=== PATIENT | male | born 1995 | race Hispanic/Latino ===

== ENCOUNTER → 2022-07-09 | Day surgery (SDC) | payer OTHER, SELFPAY ==
[~2022-07-09] MED LIST: FENTANYL CITRATE/PF 100MCG/2 ML INJ ONE; LACTATED RINGER'S 1,000 ML ONE; LIDOCAINE HCL 2% LOCAL INJ 5 ML SDV VIAL INJ ONE; METOCLOPRAMIDE HCL 10 MG/2ML VIAL ONE; OMEPRAZOLE40 MG PO; POVIDONE IODINE 0.05% 0.05 % ML PO ONE; PROBIOTIC GUMMY PO; PROPOFOL IV EMULSION 10 MG/ML 20 ML VIAL ONE
[2022-07-09 19:05] VITALS: BP 106/72
== END | disposition home or self-care (01) ==
LOC: OR 13:57
PROVIDERS: ATTEND Internal Medicine Gastroenterology
DX: K29.50 Unspecified chronic gastritis without bleeding (principal); K21.9 Gastro-esophageal reflux disease without esophagitis; K20.90 Esophagitis, unspecified without bleeding; K59.00 Constipation, unspecified; Z71.3 Dietary counseling and surveillance; Z86.19 Personal history of other infectious and parasitic diseases; Z86.16 Personal history of COVID-19
CPT/HCPCS: 43239; 88305; 88312; 88342; J2001; J2765